=== PATIENT | male | born 1955 | race Caucasian/White ===

== ENCOUNTER 2018-05-07 13:47 | Emergency (ER) | payer OTHER ==
[~2018-05-07] VITALS: Ht 154.9 cm; Wt 54.4 kg
[2018-05-07 14:18] LABS: BASOPHILS % (AUTO) 0.2 % (0.0-2.0); LYMPHOCYTES # (AUTO) 0.4 K/uL (20.0-40.0); MEAN CORPUSCULAR HEMOGLOBIN 30.9 uug (23.8-33.4); MONOCYTES # (AUTO) 0.3 K/uL (2.0-10.0); NEUTROPHILS # (AUTO) 6.2 K/uL (1.8-8.9)
[2018-05-07 14:24] LABS: CREATININE 1.4 mg/dL (0.6-1.3); LYMPHOCYTES % (AUTO) 6.1 % (20.5-51.5); MEAN CORPUSCULAR HGB CONC 34 g/dL (32.5-36.3); MEAN CORPUSCULAR VOLUME 90.7 fL (73.0-96.2); MONOCYTES % (AUTO) 3.9 % (0.0-11.0); NEUTROPHILS % (AUTO) 89.8 % (38.5-71.5); PLATELET COUNT (AUTO) 180 K/uL (152-348); POTASSIUM 4.7 mmol/L (3.5-5.1)
[2018-05-07] MEDS ORDERED: PROC10TA13 PO (14:24)
[2018-05-07] MEDS ORDERED: AMLO10TA4 PO (14:24)
[2018-05-07] MEDS ORDERED: ATOR10TA PO (14:24)
[2018-05-07] MEDS ORDERED: NEOM15OI3 TP (14:24)
[2018-05-07] MEDS ORDERED: CLOP75TA33 PO (14:24)
[2018-05-07] MEDS ORDERED: [UNRECOGNIZED DRUG - CODE] PO (14:24)
[2018-05-07] MEDS ORDERED: ISOS60TA4 PO (14:24)
[2018-05-07] MEDS ORDERED: FURO-152 PO (14:24)
[2018-05-07] MEDS ORDERED: ATROPINE 1% (14:24)
[2018-05-07] MEDS ORDERED: HYDR-4385 PO (14:24)
[2018-05-07] MEDS ORDERED: QUET25TA34 PO (14:24)
[2018-05-07] MEDS ORDERED: MUPIROCIN 2% (14:24)
[2018-05-07] MEDS ORDERED: LORA0.5T SL (14:24)
[2018-05-07] MEDS ORDERED: [UNRECOGNIZED DRUG - CODE] TD (14:24)
[2018-05-07] MEDS ORDERED: ASPI-1094 PO (14:24)
[2018-05-07] MEDS ORDERED: [UNRECOGNIZED DRUG - OTHER] (14:24)
[2018-05-07] MEDS ORDERED: SERT100T PO (14:24)
[2018-05-07] MEDS ORDERED: MORP100S3 PO (14:24)
[2018-05-07] MEDS ORDERED: BISA10SU61 RC (14:24)
[2018-05-07] MEDS ORDERED: METO25TA6 PO (14:24)
[2018-05-07] MEDS ORDERED: AMIO400T5 PO (14:24)
[2018-05-07] MEDS ORDERED: LACT-179 PO (14:24)
[2018-05-07 14:25] LABS: RED BLOOD CELL COUNT(AUTO) 2.14 MIL/uL (4.06-5.63)
[2018-05-07 14:26] LABS: HEMOGLOBIN 6.6 g/dL (12.5-16.3)
[2018-05-07 14:27] LABS: HEMATOCRIT 19.4 % (36.7-47.1)
[2018-05-07 14:30] LABS: BILIRUBIN,DIRECT 0.3 mg/dL (0.0-0.2); BILIRUBIN,TOTAL 0.5 mg/dL (0.2-1.0); TOTAL PROTEIN, SERUM 8.1 g/dL (6.4-8.2)
--- NOTE | 2018-05-07 14:55 | NUR ---
DR GARVIN SPOKE TO DR SANTIAGO(NEURO SURGEON) RE PT'S TRANSFER.
[2018-05-07 14:58] LABS: BAND % (MANUAL) 4 % (0-10); LYMPHOCYTES % (MANUAL) 4 % (20-40); MONOCYTES % (MANUAL) 2 % (2-10); NEUTROPHILS % (MANUAL) 90 % (42-75)
[2018-05-07] MEDS ORDERED: LEVETIRACETAM IV 500 MG in IV DEXTROSE 5% 100 ML IV ONE (15:00)
[2018-05-07] MEDS ORDERED: LEVETIRACETAM 500 MG/5 ML VIAL IV ONE (15:02)
--- NOTE | 2018-05-07 15:10 | NUR ---
PT'S INFO FAXED TO [facility] PER MD ORDER.
--- NOTE | 2018-05-07 16:31 | NUR ---
RN TO RN REPORT GIVEN TO AKIL(CHEMICAL OPERATOR) AT [facility].
[2018-05-07] MEDS ORDERED: LABETALOL HCL 100 MG/20 ML VIAL IV ONE (16:45)
[2018-05-07] MEDS ORDERED: hydrALAZINE HCL 20 MG/1 ML VIAL ONE (16:48)
[2018-05-07] MEDS ORDERED: hydrALAZINE HCL 20 MG/1 ML VIAL IV ONE ×2 (17:00→17:15)
[2018-05-07 17:12] VITALS: BP 152/62
--- NOTE | 2018-05-07 17:14 | NUR ---
Carlos edward in ED - 05/07/18 at [address] Dennis at the bedside for eval and possible suture removal.
--- NOTE | 2018-05-07 17:51 | NUR ---
Report given to chute worker, and Cj Sullivan WASHER [employer]CASS, Pt left ER in guarded condition. All belongings sent w/ Pt.
== END 2018-05-07 18:05 | disposition short-term general hospital (02) ==
LOC: ER 13:50
DX: I61.5 Nontraumatic intracerebral hemorrhage, intraventricular (principal); D64.9 Anemia, unspecified; D69.1 Qualitative platelet defects; N28.9 Disorder of kidney and ureter, unspecified; R79.89 Other specified abnormal findings of blood chemistry; I50.9 Heart failure, unspecified; E11.9 Type 2 diabetes mellitus without complications; Z79.82 Long term (current) use of aspirin; Z79.01 Long term (current) use of anticoagulants; Z79.899 Other long term (current) drug therapy; Z79.891 Long term (current) use of opiate analgesic
CPT/HCPCS: 36415; 70450; 70486; 71045; 72125; 72170; 73060; 73090 ×2; 80048; 80076; 82550; 84484; 85025; 85730; 86850; 86870; 86900; 86901; 93005; 96365; 96375; 99291; J0360; J1953; 70030-TC; A4663; J3490